=== PATIENT | male | born 1950 | race Caucasian/White ===

== ENCOUNTER 2024-07-21 05:55 | Day surgery (SDC) | payer MEDICARE, SELFPAY ==
[2024-07-07 13:27] VITALS: BMI 26.4
[2024-07-21] VITALS (17 sets, daily range): BP systolic 131–165; BP diastolic 79–99
[2024-07-21 08:41] LABS: ACT-LR - POC 329 Seconds (116-155)
[2024-07-21 08:58] LABS: ACT-LR - POC 319 Seconds (116-155)
[2024-07-21 09:19] LABS: ACT-LR - POC 380 Seconds (116-155)
[2024-07-21 09:32] LABS: ACT-LR - POC 372 Seconds (116-155)
--- NOTE | 2024-07-21 10:42 | ITS.CL.ABL ---
System Controller - Ablation
Ablation
Procedure Report:
ELECTROPHYSIOLOGIC STUDY AND POSSIBLE ABLATION
DATE: 07/21/24
Primary Care Provider: Dr. Flaquita Zeng
Primary Land Surveyor Manager: Dr. Joe
INDICATION:
Symptomatic Atrial Fibrillation.
Paroxysmal
HISTORY: See H and P.
Symptomatic AF, poorly controlled with attempted medical therapy
HAS-BLED: 1
Age
CHADSVASc: 2
HTN
Age
PRESENTING RHYTHM: SR
HISTORY: See H and P.
Symptomatic AF, poorly controlled with attempted medical therapy.
ANTICOAGULATION: Eliquis 5 mg twice daily
'TIME-OUT': called and confirmed.
SEDATION/ANESTHESIA: provided via the anesthesia department using general anesthesia.
PROCEDURE:
Ultrasound Guidance performed by mt was utilized for femoral venous Vascular Access b/l.
A decapolar CS catheter was placed within the CS for mapping and pacing.
The intracardiac ultrasound catheter was positioned in the RA for continuous intracardiac ultrasound imaging.
Heparin bolus and infusion to target ACT at 300 -350 seconds was administered. Transseptal puncture was performed. This entailed advancing a sheath with dilator into the superior vena cava and withdrawing both (monitoring intracardiac ultrasound,
fluoroscopy and tip pressure) with the tip oriented toward the atrial septum. The fossa ovalis was engaged (indicated by sudden displacement of the sheath tip as well as tenting of the fossa seen on intracardiac ultrasound).
The [employer] transseptal system was used. Left atrial catheter position was confirmed by echocardiographic imaging and fluoroscopy followed by RF delivery using the [employer] system resulting in successful LA access with pressure monitoring
demonstrating LA pressure waveforms (LA mean pressure 6 mm Hg). The sheath was advanced over the dilator and positioned in the left atrium.
The [employer] Grid multipolar mapping catheter was initially positioned through the transseptal sheath for high density mapping.
Geometry and voltage mapping was performed using the Taylor multipolar grid catheter. Navex was utilized for three-dimensional electroanatomical mapping.
A 3-D map was created using Navex. A 3-D reconstructed CT image was compared to the 3-D Navex map to assist in anatomic evaluation, mapping and ablation.
The NephroGenex catheter and system was used for cardiac ablation. Catheter positioning was guided and confirmed using both I.C.E. and fluoroscopy.
PV isolation approach was used to electrically isolate each PV ostia (LSPV, LIPV, RSPV, RIPV).
Additional energy applications/additional ablation set was required to accomplish wide area circumferential ablation around each of the pulmonary vein sets and additionally ablation to accomplish LA posterior wall ablation.
Remapping with the [employer] multipolar grid catheter found that all PVPs were eliminated at each vein demonstrating entrance block. Also pacing from the multipolar mapping catheter around the the circumference of the ostia was performed at 10 ma and
2.0 msec output to assess for exit block. This demonstrated electrical isolation at each of the pulmonary vein ostia (LSPV, LIPV, RSPV, RIPV). There is also entrance and exit block at the LA posterior wall.
Programmed electrostimulation failed to induce any sustained arrhythmias.
I.C.E. :
Pre-Ablation Post-Ablation
LVEF: 55% 55%
WMA: None none
Pericardial effusion: None none
COMPLICATIONS:
None
SUMMARY:
- Mapping and ablation to isolate the PVs
- Additional AF ablation set after PVI.
- 3-D Electroanatomical Mapping
- Intracardiac Ultrasound
Post ablation, I discussed today's findings and results with the patient's .
RECOMMENDATIONS:
- Observe in monitored bed.
- Maintain oral anticoagulation.
- Office visit with me in 3 months.
- Continue cardiovascular care with Dr. Joe
Copy to: Dr. Joe
--- NOTE | 2024-07-21 14:18 | W.PN.UPDATE ---
Update Note
Progress Note Update
Pt seen post PFA. Right groin site w/mild oozing with initial suture removal, but now soft/nt, no ht/bleeding. OOB ambulating, urinating without difficulty. Post EKG SB 50s, no acute changes. Will resume eliquis this evening at usual time, continue
other meds as before. Followup with Dr. sEteban as scheduled and Dr. Jimenez thereafter. Home later today if groin site/tele remain stable.
== END 2024-07-21 15:15 | disposition home or self-care (01) ==
LOC: CATH 05:55
PROVIDERS: ATTENDING PHYSICIAN Internal Medicine Cardiovascular Disease; FAMILY PHYSICIAN Family Medicine; OTHER PHYSICIAN Internal Medicine Cardiovascular Disease
DX: I48.19 Other persistent atrial fibrillation (principal); I10 Essential (primary) hypertension; M06.9 Rheumatoid arthritis, unspecified; Z86.006 Personal history of melanoma in-situ; Z79.01 Long term (current) use of anticoagulants; Z79.899 Other long term (current) drug therapy
CPT/HCPCS: C1894; C1730; C1892; C1732; 85347; 86900; 86901; 93005; 93656; 93657; C1733; C1766

== ENCOUNTER 2024-11-10 06:30 | Day surgery (SDC) | payer MEDICARE, SELFPAY ==
--- NOTE | 2024-11-10 08:13 | ITS.CL.IMPLP ---
Philosophy Specialist - Implant Loop
Implant Loop
Procedure Report:
Date of Procedure: 11/10/24
Primary Care Provider: Dr Flaquita Zeng
Primary machine plate stacker: Dr. Jimenez
Procedure: Insertable Loop Recorder Implantation
Indication:
Atrial fibrillation
Procedure:
The patient was brought to the procedure area in a fasting state. The anterior chest was prepped and draped in standard sterile fashion. The fourth intercostal space along the left sternal border was identified and this area was anesthetized with 10
mL of 1% lidocaine. After gathering the skin in this area, a small punch incision was made at approx intercostal space 4-5 at left costo-sternal junction using the provided scalpel/punch tool. The loop recorder was loaded into the tunneling device.
A tunnel was created in the subcutaneous tissue at a 45� angle along the coronal plane away from the sternum and towards the left flank. The tunneling device was inverted and the plunger was depressed, inserting the loop recorder into the
subcutaneous space. The tunneling device was removed. Manual pressure provide hemostasis. Adequate signal was confirmed. The skin was closed with steri-strips. The estimated blood loss was < 1 cc. A clean dressing was placed over the wound.
There were no complications.
Implant:
[employer] Reveal LINQ II
Conclusion:
Uncomplicated implantation of loop recorder.
ILR will be followed at [facility] with Dr Jimenez
Recommendation: Routine ILR care.
Copy: Dr Jimenez
== END 2024-11-10 09:05 | disposition home or self-care (01) ==
LOC: CATH 06:30
PROVIDERS: ATTENDING PHYSICIAN Internal Medicine Cardiovascular Disease; FAMILY PHYSICIAN Family Medicine; OTHER PHYSICIAN Internal Medicine Cardiovascular Disease
DX: Z09 Encounter for follow-up examination after completed treatment for conditions other than malignant neoplasm (principal); I48.91 Unspecified atrial fibrillation; I10 Essential (primary) hypertension; Z79.01 Long term (current) use of anticoagulants
CPT/HCPCS: 33285; C1764